=== PATIENT | male | born 1960 | race Caucasian/White ===

== ENCOUNTER 2021-05-27 12:01 | Emergency (ER) | payer OTHER, SELFPAY ==
[2021-05-27] VITALS (12 sets, daily range): BP systolic 128–174; BP diastolic 79–89; PULSE 69–90; RESP 10–21; TEMP 36.2–36.4; O2SAT 97–100
--- NOTE | ~2021-05-27 | CT_ITS ---
EXAMINATION: CT BRAIN W/O DATE: 05/27/2021 12:26 INDICATION: Headache TECHNIQUE: Computed tomography (CT) of the head was performed without intravenous contrast. The dose- length product was 681.00 mGy-cm. Automated exposure control and iterative reconstruction technique w ere employed. COMPARISON: CT dated 09/29/2008 FINDINGS: Normal brain parenchymal volume for age. Normal abdullahi-white differentiation. No acute intrac ranial hemorrhage, infarction, mass or mass effect. No ventriculomegaly or midline shift. Midline sagittal images demonstrate a normal corpus callosum, c raniovertebral junction and sella turcica. Basilar cisterns are patent. Paranasal sinuses and mastoids are pneumatized. No depressed skull fractures. IMPRESSION: 1. No acute intracranial abnormality. Reviewed, dictated and finalized at location B. ING PRODUCTION MANAGER
--- NOTE | ~2021-05-27 | XR_ITS ---
XR chest 1V DATE: 05/27/2021 12:31 INDICATION: Hypertension. Left shoulder TECHNIQUE: AP chest COMPARISON: 03/22/2016 PA and lateral chest FINDINGS: Normal heart size. No hilar or mediastinal enlargement. No pulmonary infiltrate or consolid ation, pleural effusion or pulmonary vascular congestion or pneumothorax. IMPRESSION: No active cardiopulmonary disease Reviewed, dictated and finalized at location A. AZZO LAYER HELPER
--- NOTE | 2021-05-27 12:11 | ECG_ITS ---
Measurements Intervals [place] Rate: 69 P: 28 MS: 212 QRS: 14 QRSD: 81 T: 55 QT: 372 QTc: 399 Interpretive Statements SINUS RHYTHM WITH FIRST DEGREE AV BLOCK CONSIDER INFERIOR INFARCT, AGE INDETERMINATE ABNORMAL ECG Electronically Signed On 05-27-2021 13:21:27 TECHNICIAN'S HELPER by Omar Irving D.O.
--- NOTE | 2021-05-27 12:22 | ED.GENADULT ---
HPI - General Adult General Chief complaint: Chest Pain Stated complaint: Elevated Blood Pressure Time Seen by Provider: 05/27/21 12:10 Source: patient Mode of arrival: ambulatory Limitations: no limitations History of Present Illness HPI narrative: Patient is a 61-year-old male complaining of left upper shoulder discomfort radiating to left-sided neck, mild, worse with movement of his left upper extremity. Patient also complaining of elevated blood pressure and a headache that started this morning. Patient states that he might have injured his left shoulder while lifting something yesterday. Patient states that his headache was an 8-9 out of 10 earlier this morning but now down to 1-2 out of 10. Patient denies any history of hypertension. Patient denies any chest pain, shortness of breath, abdominal pain, nausea, vomiting, diaphoresis, fever or chills Related Data Home Medications Medication Instructions Recorded Confirmed ciprofloxacin 0.3 %-dexamethasone 4 drop EACH EAR Q12H 12/04/19 0.1 % ear drops,suspension pantoprazole 40 mg tablet,delayed 40 mg PO QAM 12/04/19 release tamsulosin 0.4 mg capsule 0.4 mg PO DAILY 12/04/19 Allergies Allergy/AdvReac Type Severity Reaction Status Date / Time No Known Allergies Allergy Unknown Verified 12/04/19 15:07 Review of Systems Review of Systems: All systems reviewed & are unremarkable except as noted in HPI and below Constitutional: Constitutional: Denies body ache(s), Denies chills, Denies excessive sweating, Denies fatigue, Denies fever(s), Denies headache(s), Denies lethargy, Denies malaise, Denies weakness and Denies weight loss Eyes: Eyes: Denies blurry vision, Denies change in vision and Denies loss of vision ENT: Denies dizziness, Denies ear discharge, Denies headache(s), Denies lip swelling, Denies epistaxis, Denies nasal congestion, Denies neck pain, Denies throat swelling and Denies tongue swelling Cardiovascular: Cardiovascular: Denies chest pain, Denies chest pain at rest, Denies chest pain with activity, Denies diaphoresis, Denies rapid heart rate, Denies edema, Denies irregular heart rhythm, Denies lightheadedness, Denies palpitations, Denies dyspnea and Denies dyspnea on exertion Respiratory: Respiratory: Denies chest congestion, Denies cough, Denies hemoptysis, Denies dyspnea and Denies dyspnea on exertion Gastrointestinal: Gastrointestinal: Denies abdominal pain, Denies melena, Denies hematochezia, Denies diarrhea, Denies nausea, Denies vomiting and Denies hematemesis Musculoskeletal: Musculoskeletal: Denies abnormal gait, Denies deformity, Denies joint swelling, Denies limited range of motion, Denies neck pain and Denies numbness Neurologic: Denies Abnormal speech present, Denies abnormal gait, Denies confusion, Denies dizziness, Denies focal weakness, Denies loss of vision, Denies numbness, Denies Other visual disturbances, Denies Sensory deficit (Neuro) and Denies weakness Psychiatric: Psychiatric: Denies confusion, Denies depression, Denies auditory hallucinations, Denies homicidal ideation and Denies suicidal ideation Endocrine: Endocrine: Denies cold intolerance, Denies excessive sweating, Denies fatigue, Denies heat intolerance and Denies palpitations Hematologic/Lymphatic: Hematologic/Lymphatic: Denies easy bleeding and Denies easy bruising Allergic/Immunologic: Allergic/Immunologic: Denies lip swelling, Denies throat swelling and Denies tongue swelling PMFSH Comments Past medical history: Hyperlipidemia Family history: Negative for coronary artery disease or ME Social history: Non-smoker no EtOH or drug use Exam Const: General: cooperative, healthy appearing, comfortable, no acute distress, well developed, alert and awake; No confusion Orientation/consciousness: oriented to person, oriented to place, oriented to time, patient oriented x3 and No confusion Limitations: no limitations HENMT: Head: normal to inspection, normocephalic and atrau
[2021-05-27 12:27] LABS: Basophils Percent Auto 0.7 % (0.2-1.2); Eosinophils Absolute Auto 0.1 K/mm3 (0-0.3); Eosinophils Percent Auto 2.3 % (0-4.4); Hematocrit 43.9 % (42.0-52.0); Hemoglobin 15.3 g/dL (14.0-18.0); Immature Granulocyte Absolute 0.02 K/mm3 (0.00-0.031); Immature Granulocyte Percent A 0.3 % (0-0.5); Lymphocytes Absolute Auto 1.56 K/mm3 (0.9-3.2); Lymphocytes Percent Auto 27.3 % (18.3-44.2); Mean Corpuscular HGB Conc 34.9 g/dl (32-36); Mean Corpuscular Hemoglobin 31.6 pg (26-34); Mean Corpuscular Volume 90.7 fl (80-100); Monocytes Absolute Auto 0.4 K/mm3 (0.1-0.6); Monocytes Percent Auto 7.3 % (2.6-8.5); Neutrophils Absolute Auto 3.6 K/mm3 (1.3-6.7); Neutrophils Percent Auto 62.1 % (45.5-73.1); Platelet Count Result 166 k/mm3 (150-375); Red Blood Count 4.84 M/mm3 (4.6-6.20); White Blood Count 5.7 K/mm3 (4.5-10.0)
[2021-05-27 12:37] LABS: Prothrombin Time 12.5 Seconds (11.1-14.7)
[2021-05-27 12:38] LABS: Partial Thromboplastin Time 28.2 SECONDS (22.3-36.8)
[2021-05-27 12:50] LABS: Alanine Aminotransferase 34 U/L (4-50); Alkaline Phosphatase 101 U/L (38-126); Anion Gap 10 mmol/L (8-16); Aspartate Amino Transferase 39 U/L (17-59); Bilirubin,Total 1.3 mg/dL (0.2-1.3); Blood Urea Nitrogen 16 mg/dL (9-20); Calcium 9.5 mg/dL (8.4-10.2); Carbon Dioxide 25 mmol/L (22-30); Chloride 105 mmol/L (98-107); Estimated CRCL calculation 107 ml/min; Estimated Glomerular Filt Rate > 60; Glucose 97 mg/dL (65-110); Potassium 4.5 mmol/L (3.4-5.0); Sodium 140 mmol/L (137-145)
[2021-05-27 13:02] LABS: Troponin I < 0.012 ng/mL (0.000-0.034)
[2021-05-27] MEDS: ASPIRIN 81 MG CHEWABLE TABLET 324 MG PO (13:47)
[2021-05-27 15:16] LABS: Troponin I < 0.012 ng/mL (0.000-0.034)
== END 2021-05-27 16:19 | disposition home or self-care (01) ==
PROVIDERS: Emergency Provider Emergency Medicine; PCP Internal Medicine
DX: R07.89 Other chest pain (principal); R03.0 Elevated blood-pressure reading, without diagnosis of hypertension; R51.9 Headache, unspecified; E78.5 Hyperlipidemia, unspecified; I44.0 Atrioventricular block, first degree; R94.31 Abnormal electrocardiogram [ECG] [EKG]
CPT/HCPCS: 36415; 70450; 71045; 80053; 84484; 85025; 85610; 85730; 93005; 99284; A9270

== ENCOUNTER 2021-06-08 10:11 | Outpatient (CLI) | payer OTHER, SELFPAY ==
--- NOTE | 2021-06-08 | EST_ITS ---
Patient Info Name: Ranjan Bob Age: 61 years : 1960 Gender: Male Ht: 73 in Wt: 195 lbs BSA: 2.14 m2 HR: 69 bpm BP: 133 / 80 mmHg Heart Rhythm: Sinus Rhythm Exam Date: 06/08/2021 11:05 AM Exam Location: [facility] Stress Patient Status: Outpatient Admit Date: 06/08/2021 Staff Ordering Physician: Nathan, Ricardo KENNEDY Attending Provider: Nathan, Ricardo KENNEDY Exercise Technologist: Julianne Richards CT Nurse: MAHAMED NOEL Exam Type: CA stress test treadmill Study Info Indications R07.9 - Chest pain, unspecified A treadmill exercise stress test was performed. Summary 1. Occasional stress-induced PVCs. 2. Nondiagnostic ECG changes which did not meet strict criteria for reversible myocardial ischemia with exercise. 3. Exercise capacity very good at >10 METS. 4. Hypertensive blood pressure response to exercise albeit hypertensive at baseline. 5. No chest discomfort with stress test. 6. Becker treadmill score + 9 indicating low risk for adverse cardiovascular events of the next 5 years. Protocol: Dm Stress ECG Details Stage: REST Duration (min): 1 min : 0 sec Speed (mph): 0.0 Grade (%): 0 HR (bpm): 72 SBP (mmHg): 133 DBP (mmHg): 80 METS: --- Stage: REST Duration (min): 4 min : 41 sec Speed (mph): 0.0 Grade (%): 0 HR (bpm): 69 SBP (mmHg): 133 DBP (mmHg): 80 METS: --- Stage: STAGE 1 Duration (min): 1 min : 0 sec Speed (mph): 1.7 Grade (%): 10 HR (bpm): 92 SBP (mmHg): 133 DBP (mmHg): 80 METS: --- Stage: STAGE 1 Duration (min): 2 min : 0 sec Speed (mph): 1.7 Grade (%): 10 HR (bpm): 102 SBP (mmHg): 133 DBP (mmHg): 80 METS: --- Stage: STAGE 1 Duration (min): 3 min : 0 sec Speed (mph): 1.7 Grade (%): 10 HR (bpm): 101 SBP (mmHg): 178 DBP (mmHg): 85 METS: --- Stage: STAGE 2 Duration (min): 1 min : 0 sec Speed (mph): 2.5 Grade (%): 12 HR (bpm): 112 SBP (mmHg): 178 DBP (mmHg): 85 METS: --- Stage: STAGE 2 Duration (min): 2 min : 0 sec Speed (mph): 2.5 Grade (%): 12 HR (bpm): 117 SBP (mmHg): 182 DBP (mmHg): 85 METS: --- Stage: STAGE 2 Duration (min): 3 min : 0 sec Speed (mph): 2.5 Grade (%): 12 HR (bpm): 123 SBP (mmHg): 182 DBP (mmHg): 85 METS: --- Stage: STAGE 3 Duration (min): 1 min : 0 sec Speed (mph): 3.4 Grade (%): 14 HR (bpm): 131 SBP (mmHg): 212 DBP (mmHg): 81 METS: --- Stage: STAGE 3 Duration (min): 2 min : 0 sec Speed (mph): 3.4 Grade (%): 14 HR (bpm): 138 SBP (mmHg): 212 DBP (mmHg): 81 METS: --- Stage: STAGE 3 Duration (min): 3 min : 0 sec Speed (mph): 3.4 Grade (%): 14 HR (bpm): 142 SBP (mmHg): 193 DBP (mmHg): 77 METS: --- Stage: RECOVERY Duration (min): 0 min : 59 sec Speed (mph): 0.0 Grade (%): 0 HR (bpm): 129 SBP (mm
== END 2021-06-08 10:12 | disposition home or self-care (01) ==
LOC: ANHCARD 10:17
PROVIDERS: PCP Internal Medicine; Visit Provider Internal Medicine
DX: R07.89 Other chest pain (principal)
CPT/HCPCS: 93017

== ENCOUNTER 2023-10-20 11:19 | Outpatient (CLI) | payer OTHER, SELFPAY ==
--- NOTE | ~2023-10-20 | XR_ITS ---
Clinical Indication: Cough PA and lateral views of the chest: Comparison: 05/27/2021 Findings: The lungs are clear, without evidence of focal consolidation or pleural effusion. Cardiome diastinal silhouette is within normal limits. Bones and soft tissues are unremarkable. Impression: Normal chest. Reviewed, dictated and finalized at location . Impression: Normal chest.
== END 2023-10-20 11:20 ==
PROVIDERS: PCP Internal Medicine; Visit Provider Internal Medicine
DX: R05.9 Cough, unspecified (principal)
CPT/HCPCS: 71046

== ENCOUNTER 2024-08-14 09:57 | Outpatient (CLI) | payer OTHER, SELFPAY ==
--- NOTE | ~2024-08-14 | US_ITS ---
Limited Abdominal Sonogram: Real-time sonographic imaging of the right upper quadrant was performed. Clinical History: Elevated bilirubin Findings: The liver appears normal with no evidence of bile duct dilatation. There is a 1.3 x 1.4 x 1.7 cm lobulated echogenic mass in the right hepatic lobe, most likely hemangioma. Main portal vein d emonstrates normal direction of flow. The gallbladder is well distended, and appears normal with no e vidence of gallstone or wall thickening. The common bile duct measures 4 mm. The visualized pancreas , aorta, and IVC are unremarkable. Impression: 1.7 cm echogenic mass in the right hepatic lobe, most likely hemangioma. Consider follow-up MR to con firm. Reviewed, dictated and finalized at location . Impression: 1.7 cm echogenic mass in the right hepatic lobe, most likely hemangioma. Consid er follow-up MR to confirm.
== END 2024-08-14 09:58 | disposition home or self-care (01) ==
PROVIDERS: PCP Internal Medicine; Visit Provider Internal Medicine
DX: R17 Unspecified jaundice (principal)
CPT/HCPCS: 76705

== ENCOUNTER 2024-09-13 12:46 | Outpatient (CLI) | payer OTHER, SELFPAY ==
--- NOTE | ~2024-09-13 | MR_ITS ---
MRI of the abdomen: Clinical indication: Abnormal liver lesion. Technique: Coronal SSFSE ARC, WATER:coronal LAVA-FLEX, Coronal 2D FIESTA FatSat, Axial SSFSE BH ARC, Axial 3D DualEcho BH, Axial SSFSE-IR, Axial DWI b=500, Axial 2D FIESTA FatSat, pre and dynamic postco ntrast Axial LAVA ARC, postcontrast Coronal In and Opposed phase LAVA FLEX . Following intravenous ad ministration of 17 cc MultiHance gadolinium, T1-weighted fat-sat imaging was performed in the axial a nd coronal planes. Findings: Multiple gallstones are noted. The common bile duct is normal in course and caliber. No fi lling defects are seen within the CBD. No evidence of intrahepatic biliary ductal dilatation. The yepez creatic duct is normal in size. There is a 1.3 cm T2 hyperintense mass at the inferior right hepatic lobe with progressive fill in on postcontrast images, most compatible with benign hemangioma. There are innumerable small T2 hyperint ense, hyperenhancing lesions throughout the spleen, probably similar to prior thoracic spine MR dated 08/02/2018. Pancreas, adrenals, kidneys appear normal. The aorta and the paraaortic regions appear normal. Impression: 1.3 cm right hepatic lobe hemangioma. Innumerable small T2 hyperintense, nonenhancing lesions throughout the spleen, probably stable since 2019. Findings suggest multiple small lymphangiomas versus other benign lesions. Reviewed, dictated and finalized at [facility]. Impression: 1.3 cm right hepatic lobe hemangioma. Innumerable small T2 hyperintense, nonenhancing lesions throughout the spleen, probably stable since 2019. Findings suggest multiple small lymphangiomas versu s other benign lesions.
== END 2024-09-13 12:47 | disposition home or self-care (01) ==
PROVIDERS: PCP Internal Medicine; Visit Provider Internal Medicine
DX: R93.2 Abnormal findings on diagnostic imaging of liver and biliary tract (principal)
CPT/HCPCS: 74183; A9577